=== PATIENT | female | born 1940 | race African-American/Black ===

== ENCOUNTER 2017-03-05 04:33 | Emergency (ER) | payer MEDICARE ==
[~2017-03-05] VITALS: Ht 149.9 cm; Wt 79.5 kg
[~2017-03-05 04:33] MED LIST: HTN MED PO; HYDR-3971 PO; SITA100 PO
[2017-03-05 04:47] LABS: GLUCOSE,POINT OF CARE 112 MG/DL (70-110)
[2017-03-05] MEDS ORDERED: KETOROLAC TROMETHAMINE 60 MG/2 ML VIAL IM ONE (06:30)
[2017-03-05 06:55] LABS: BASOPHILS # (AUTO) 0.04 K/uL (0.00-0.20); BASOPHILS % (AUTO) 0.4 % (0.0-2.0); EOSINOPHILS # (AUTO) 0.14 K/uL (0.00-0.70); EOSINOPHILS % (AUTO) 1.36 % (1.0-6.0); HEMATOCRIT 40.9 % (36-46); HEMOGLOBIN 13.2 g/dL (12.0-16.0); LYMPHOCYTES # (AUTO) 1.5 K/uL (1.0-4.8); LYMPHOCYTES % (AUTO) 15.1 % (22.0-44.0); MEAN CORPUSCULAR HGB CONC 32.2 G/dL (31.0-37.0); MEAN CORPUSCULAR VOLUME 93 fL (80-100); MONOCYTES # (AUTO) 0.5 K/uL (0.1-1.0); MONOCYTES % (AUTO) 4.7 % (2.0-9.0); NEUTROPHILS # (AUTO) 7.8 K/uL (1.8-7.7); NEUTROPHILS % (AUTO) 78.4 % (40.0-70.0); PLATELET COUNT (AUTO) 235 K/uL (150-450); RED BLOOD CELL COUNT(AUTO) 4.38 MIL/uL (4.00-5.20); RED CELL DISTRIBUTION WIDTH 13.6 % (11.5-14.5)
[2017-03-05 07:07] LABS: CALCIUM, TOTAL 9.4 mg/dL (8.8-10.5); CREATININE 1.21 mg/dL (0.60-1.30); POTASSIUM 4.5 mmol/L (3.5-5.1)
[2017-03-05 07:13] LABS: ALBUMIN 3.9 g/dL (3.4-5.0); BILIRUBIN,TOTAL 0.4 mg/dL (0.1-1.0); TOTAL PROTEIN, SERUM 8.2 g/dL (6.4-8.2)
[2017-03-05 08:00] VITALS: BP 144/72
== END 2017-03-05 08:11 | disposition home or self-care (01) ==
LOC: EMS 04:34
DX: S00.212A Abrasion of left eyelid and periocular area, initial encounter (principal); M50.30 Other cervical disc degeneration, unspecified cervical region; E11.9 Type 2 diabetes mellitus without complications; I10 Essential (primary) hypertension; Z88.2 Allergy status to sulfonamides; Z88.5 Allergy status to narcotic agent; W06.XXXA Fall from bed, initial encounter; Y93.89 Activity, other specified; Y92.89 Other specified places as the place of occurrence of the external cause; Y99.8 Other external cause status
CPT/HCPCS: 36415; 70450; 72125; 80053; 82962; 85025; 96372; 99285; J1885

== ENCOUNTER 2023-03-21 10:15 | Inpatient (IN) | payer MEDICARE, MEDICAID ==
[~2023-03-21] VITALS: Ht 152.4 cm; Wt 54.5 kg
[~2023-03-21 10:15] MED LIST changes: -HYDR-3971 PO; +HYDR-4072 PO
[2023-03-21 13:34] LABS: BASOPHILS % (AUTO) 0.3 % (0.0-2.0); EOSINOPHILS % (AUTO) 0.7 % (1.0-6.0); HEMATOCRIT 39.2 % (36-46); LYMPHOCYTES # (AUTO) 1.9 K/uL (1.0-4.8); LYMPHOCYTES % (AUTO) 12.4 % (22.0-44.0); MEAN CORPUSCULAR HEMOGLOBIN 30.4 pg (26.0-34.0); MEAN CORPUSCULAR HGB CONC 33.1 G/dL (31.0-37.0); MEAN CORPUSCULAR VOLUME 92 fL (80-100); MONOCYTES # (AUTO) 0.9 K/uL (0.1-1.0); MONOCYTES % (AUTO) 6.1 % (2.0-9.0); NEUTROPHILS # (AUTO) 12.5 K/uL (1.8-7.7); NEUTROPHILS % (AUTO) 80.5 % (40.0-70.0); PLATELET COUNT (AUTO) 107 K/uL (150-450); RED BLOOD CELL COUNT(AUTO) 4.28 MIL/uL (4.00-5.20); RED CELL DISTRIBUTION WIDTH 14.5 % (11.5-14.5); WHITE BLOOD COUNT (AUTO) 15.5 K/uL (4.5-11.0)
[2023-03-21 14:16] LABS: ANION GAP 12 mmol/L (8-16); CALCIUM, TOTAL 10.2 mg/dL (8.8-10.5); CARBON DIOXIDE 26 mmol/L (22-29); CHLORIDE 104 mmol/L (98-107); CREATININE 0.92 mg/dL (0.60-1.30); GLOMERULAR FILTR. RATE CALC > 60 mL/min (>60); GLUCOSE,RANDOM 163 mg/dL (70-110); POTASSIUM 3.8 mmol/L (3.5-5.1); SODIUM SERUM 142 mmol/L (136-145); UREA NITROGEN, BLOOD 14 mg/dL (7-18)
[2023-03-21 14:26] LABS: ALANINE AMINOTRANSFERASE 22 U/L (12-78); ALBUMIN 4.1 g/dL (3.4-5.0); ALKALINE PHOSPHATASE 72 U/L (46-116); ASPARTATE AMINOTRANSFERASE 31 U/L (15-37); TOTAL PROTEIN, SERUM 8.3 g/dL (6.4-8.2)
[2023-03-21] MEDS ORDERED: ONDANSETRON HCL 4 MG/2 ML VIAL IVP ONE (15:00)
[2023-03-21] MEDS ORDERED: MORPHINE SULFATE 4 MG/ML SYRINGE IVP ONE (15:00)
[2023-03-21 15:21] LABS: INR 1.2 (0.9-1.1)
[2023-03-21] MEDS ORDERED: FentaNYL CITRATE PF 100 MCG/2 ML VIAL IVP ONE (17:15)
[2023-03-21 17:23] LABS: APPEARANCE,URINE CLEAR (CLEAR); BILIRUBIN,URINE NEGATIVE (NEGATIVE); COLOR,URINE LIGHT YELLOW (YELLOW); GLUCOSE, URINE (UA) NEGATIVE (NEGATIVE); KETONES,URINE NEGATIVE (NEGATIVE); LEUKOCYTE ESTERASE ,URINE SMALL (NEGATIVE); NITRATE,URINE NEGATIVE (NEGATIVE); OCCULT BLOOD,URINE NEGATIVE (NEGATIVE); PH,URINE 6.5 (5.0-8.0); PROTEIN,URINE NEGATIVE (NEGATIVE); SPECIFIC GRAVITIY, URINE 1.012 (1.003-1.030); UROBILINOGEN,URINE <=1.0 mg/dL (<=1.0)
[2023-03-21 17:57] LABS: BACTERIA,URINE None Seen /HPF (None Seen); RBC,URINE None Seen /HPF (0-2)
[2023-03-21] MEDS ORDERED: ONDANSETRON HCL 4 MG/2 ML VIAL IVP PRN (18:30)
[2023-03-21] MEDS ORDERED: DEXTROSE 50%-WATER 25 GM/50 ML SYRINGE IVP PRN (18:45)
[2023-03-21] MEDS ORDERED: LORazepam 2 MG/ML VIAL IVP ONE (19:15)
[2023-03-21] MEDS: DOCUSATE SODIUM 100 MG CAPSULE PO SCH (21:00)
[2023-03-21] MEDS ORDERED: SODIUM CHLORIDE 0.9% 1,650 ML IV ONE (21:15)
[2023-03-21] MEDS: INSULIN GLARGINE,HUM.REC.ANLOG 100 UNITS/ML SQ SCH (21:42)
[2023-03-21] MEDS: CefTRIAXone 1 GM/DEXTROSE 50 ML IV SCH (22:05)
[2023-03-21 22:50] LABS: LACTIC ACID 0.8 mmol/L (0.4-2.0)
[2023-03-21 23:37] LABS: COVID AG,FIA SOURCE NASAL SWAB
[2023-03-21 23:53] VITALS: BP 125/73; PULSE 85; RESP 18; TEMP 99.7
[2023-03-21 23:58] LABS: SARS-COV2 (COVID) ANTIGEN,FIA Negative (Negative)
[2023-03-22] MEDS: SODIUM CHLORIDE 0.9% 1,000 ML IV SCH ×2 (00:49→16:46)
[2023-03-22] MEDS: ACETAMINOPHEN 325 MG TABLET PO PRN ×3 (00:50→21:52)
[2023-03-22 05:52] VITALS: BP 132/46; PULSE 69; RESP 18; TEMP 97.7
[2023-03-22 07:30] LABS: BASOPHILS % (AUTO) 0.4 % (0.0-2.0); HEMOGLOBIN 11.6 g/dL (12.0-16.0); LYMPHOCYTES # (AUTO) 1.6 K/uL (1.0-4.8); LYMPHOCYTES % (AUTO) 14.5 % (22.0-44.0); MEAN CORPUSCULAR HEMOGLOBIN 30.2 pg (26.0-34.0); MEAN CORPUSCULAR HGB CONC 33.3 G/dL (31.0-37.0); MEAN CORPUSCULAR VOLUME 91 fL (80-100); MONOCYTES % (AUTO) 9.1 % (2.0-9.0); NEUTROPHILS # (AUTO) 8.2 K/uL (1.8-7.7); PLATELET COUNT (AUTO) 245 K/uL (150-450); RED BLOOD CELL COUNT(AUTO) 3.86 MIL/uL (4.00-5.20); RED CELL DISTRIBUTION WIDTH 14.2 % (11.5-14.5); WHITE BLOOD COUNT (AUTO) 10.9 K/uL (4.5-11.0)
[2023-03-22 07:41] LABS: ANION GAP 9 mmol/L (8-16); CALCIUM, TOTAL 9.3 mg/dL (8.8-10.5); CARBON DIOXIDE 27 mmol/L (22-29); CHLORIDE 106 mmol/L (98-107); CREATININE 0.79 mg/dL (0.60-1.30); GLOMERULAR FILTR. RATE CALC > 60 mL/min (>60); GLUCOSE,RANDOM 128 mg/dL (70-110); POTASSIUM 4.2 mmol/L (3.5-5.1); SODIUM SERUM 142 mmol/L (136-145); UREA NITROGEN, BLOOD 8 mg/dL (7-18)
[2023-03-22 07:41] LABS: GLUCOMETER DEV NAME(LOC) 6S.2; GLUCOSE,POINT OF CARE 122 MG/DL (70-110)
[2023-03-22 08:17] VITALS: BP 143/65; PULSE 80; RESP 18; TEMP 97.6
[2023-03-22] MEDS: DOCUSATE SODIUM 100 MG CAPSULE PO SCH ×2 (09:00→21:18)
[2023-03-22] MEDS ORDERED: BUPIVACAINE LIPOSOME/PF 1.3%-13.3MG/ML SUSPENSION 20 ML VIAL INJ ONE (10:45)
[2023-03-22] MEDS ORDERED: CHLORHEXIDINE GLUCONATE 2% TOWELETTE [2'S/6'S] TP ONE (11:15)
[2023-03-22] MEDS ORDERED: ETHYL ALCOHOL 62% ANTISEPTIC NASAL SANITIZER 0.6 ML AMPUL NASAL ONE (11:15)
[2023-03-22 11:26] LABS: GLUCOMETER DEV NAME(LOC) 6S.2; GLUCOSE,POINT OF CARE 86 MG/DL (70-110)
[2023-03-22] MEDS ORDERED: VANCOMYCIN HCL 1 GM/VIAL ONE (11:54)
[2023-03-22] MEDS ORDERED: BUPIVACAINE HCL/PF 0.5% 30 ML VIAL ONE (11:54)
[2023-03-22] MEDS ORDERED: PROPOFOL 1% 20 ML VIAL IVP ONE (12:00)
[2023-03-22] MEDS ORDERED: ACETAMINOPHEN/ISO-OSM 1000 MG/100 ML BOTTLE IV ONE (12:00)
[2023-03-22] MEDS ORDERED: FentaNYL CITRATE PF 100 MCG/2 ML VIAL IVP ONE (12:00)
[2023-03-22] MEDS ORDERED: RINGERS SOLUTION,LACTATED 1,000 ML IV ONE (12:30)
[2023-03-22] MEDS ORDERED: HYDROmorphone HCL 2 MG/ML SYRINGE IVP PRN (16:00)
[2023-03-22] MEDS ORDERED: FentaNYL CITRATE PF 100 MCG/2 ML VIAL IVP PRN (16:00)
[2023-03-22] MEDS ORDERED: MEPERIDINE-PF 25 MG/ML VIAL IVP PRN (16:00)
[2023-03-22] MEDS: HEPARIN SODIUM,PORCINE 5,000 UNITS/ML VIAL SQ SCH ×2 (16:46→23:56)
[2023-03-22 17:42] LABS: GLUCOMETER DEV NAME(LOC) 6S.2; GLUCOSE,POINT OF CARE 114 MG/DL (70-110)
[2023-03-22 18:01] VITALS: BP 126/69; PULSE 103; RESP 17; TEMP 97.8
[2023-03-22] MEDS: OXYGEN THERAPY IH SCH (20:00)
[2023-03-22 20:36] VITALS: BP 147/77; PULSE 102; RESP 20; TEMP 98.2
[2023-03-22] MEDS: CefTRIAXone 1 GM/DEXTROSE 50 ML IV SCH (21:19)
[2023-03-22] MEDS: INSULIN GLARGINE,HUM.REC.ANLOG 100 UNITS/ML SQ SCH (21:27)
[2023-03-23 01:56] LABS: GLUCOMETER DEV NAME(LOC) 4E.2; GLUCOSE,POINT OF CARE 120 MG/DL (70-110)
[2023-03-23] MEDS: HYDROCODONE/ACETAMINOPHEN 5-325 MG TABLET PO PRN ×3 (02:51→20:21)
[2023-03-23 05:39] VITALS: BP 125/59; PULSE 92; RESP 20; TEMP 98.3
[2023-03-23] MEDS: OXYGEN THERAPY IH SCH ×2 (08:00→20:00)
[2023-03-23 08:20] VITALS: BP 142/66; PULSE 93; RESP 18; TEMP 98
[2023-03-23] MEDS: SODIUM CHLORIDE 0.9% 1,000 ML IV SCH (08:44)
[2023-03-23] MEDS: DOCUSATE SODIUM 100 MG CAPSULE PO SCH ×2 (08:46→20:21)
[2023-03-23] MEDS: HEPARIN SODIUM,PORCINE 5,000 UNITS/ML VIAL SQ SCH ×2 (08:46→16:00)
[2023-03-23 12:01] LABS: GLUCOMETER DEV NAME(LOC) 6S.2; GLUCOSE,POINT OF CARE 139 MG/DL (70-110)
[2023-03-23 16:35] VITALS: BP 129/55; PULSE 98; RESP 18; TEMP 97.4
[2023-03-23] MEDS: INSULIN LISPRO 100 UNITS/ML SQ PRN (17:45)
[2023-03-23 19:35] VITALS: BP 126/55; PULSE 114; RESP 20; TEMP 98.8
[2023-03-23] MEDS: INSULIN GLARGINE,HUM.REC.ANLOG 100 UNITS/ML SQ SCH (20:55)
[2023-03-23] MEDS: CefTRIAXone 1 GM/DEXTROSE 50 ML IV SCH (21:49)
[2023-03-24 00:41] LABS: GLUCOMETER DEV NAME(LOC) 6N.2B; GLUCOSE,POINT OF CARE 124 MG/DL (70-110)
[2023-03-24] MEDS: HEPARIN SODIUM,PORCINE 5,000 UNITS/ML VIAL SQ SCH ×4 (00:56→23:45)
[2023-03-24] MEDS: SODIUM CHLORIDE 0.9% 1,000 ML IV SCH ×2 (00:57→16:22)
[2023-03-24 03:45] VITALS: BP 125/54; PULSE 91; RESP 18; TEMP 99
[2023-03-24 07:51] LABS: GLUCOMETER DEV NAME(LOC) 4E.2; GLUCOSE,POINT OF CARE 111 MG/DL (70-110)
[2023-03-24 07:55] VITALS: BP 147/63; PULSE 86; RESP 18; TEMP 99
[2023-03-24] MEDS: OXYGEN THERAPY IH SCH ×2 (08:00→20:00)
[2023-03-24] MEDS: DOCUSATE SODIUM 100 MG CAPSULE PO SCH ×2 (11:03→20:01)
[2023-03-24 12:37] LABS: GLUCOMETER DEV NAME(LOC) 4E.2; GLUCOSE,POINT OF CARE 104 MG/DL (70-110)
[2023-03-24] MEDS: HYDROCODONE/ACETAMINOPHEN 5-325 MG TABLET PO PRN ×2 (13:55→20:01)
[2023-03-24] MEDS: INSULIN LISPRO 100 UNITS/ML SQ PRN (17:20)
[2023-03-24 17:25] VITALS: BP 142/67; PULSE 98; RESP 18; TEMP 98.6
[2023-03-24 17:57] LABS: GLUCOMETER DEV NAME(LOC) 4E.2; GLUCOSE,POINT OF CARE 156 MG/DL (70-110)
[2023-03-24 17:57] LABS: GLUCOMETER DEV NAME(LOC) 4E.2; GLUCOSE,POINT OF CARE 130 MG/DL (70-110)
[2023-03-24] MEDS ORDERED: HALOPERIDOL LACTATE 5 MG/ML VIAL IM ONE (19:00)
[2023-03-24 20:08] VITALS: BP 137/77; PULSE 103; RESP 18; TEMP 98.1
[2023-03-24] MEDS: INSULIN GLARGINE,HUM.REC.ANLOG 100 UNITS/ML SQ SCH (21:06)
[2023-03-24] MEDS: CefTRIAXone 1 GM/DEXTROSE 50 ML IV SCH (21:18)
[2023-03-24] MEDS: HYDROmorphone HCL 2 MG/ML SYRINGE IVP PRN (22:09)
[2023-03-25 02:36] LABS: GLUCOMETER DEV NAME(LOC) 6N.2B; GLUCOSE,POINT OF CARE 129 MG/DL (70-110)
[2023-03-25 04:16] VITALS: BP 141/64; PULSE 86; RESP 18; TEMP 98.6
[2023-03-25] MEDS: HYDROCODONE/ACETAMINOPHEN 5-325 MG TABLET PO PRN ×2 (04:25→09:04)
[2023-03-25 05:36] LABS: GLUCOMETER DEV NAME(LOC) 6N.2B; GLUCOSE,POINT OF CARE 162 MG/DL (70-110)
[2023-03-25] MEDS: INSULIN LISPRO 100 UNITS/ML SQ PRN ×4 (05:40→20:41)
[2023-03-25] MEDS: OXYGEN THERAPY IH SCH (08:00)
[2023-03-25 08:25] VITALS: BP 143/66; PULSE 84; RESP 18; TEMP 98.1
[2023-03-25] MEDS: DOCUSATE SODIUM 100 MG CAPSULE PO SCH ×2 (09:04→20:19)
[2023-03-25] MEDS: HEPARIN SODIUM,PORCINE 5,000 UNITS/ML VIAL SQ SCH ×3 (09:04→23:11)
[2023-03-25] MEDS: SODIUM CHLORIDE 0.9% 1,000 ML IV SCH (10:38)
[2023-03-25] MEDS: ACETAMINOPHEN 325 MG TABLET PO PRN (12:15)
[2023-03-25 12:41] LABS: GLUCOMETER DEV NAME(LOC) 6N.2B; GLUCOSE,POINT OF CARE 146 MG/DL (70-110)
[2023-03-25 15:28] VITALS: BP 140/82; PULSE 103; RESP 20; TEMP 97.8
[2023-03-25 18:01] LABS: GLUCOMETER DEV NAME(LOC) 6S.2; GLUCOSE,POINT OF CARE 151 MG/DL (70-110)
[2023-03-25 19:29] VITALS: BP 150/53; PULSE 117; RESP 18; TEMP 98.4
[2023-03-25] MEDS: MELATONIN 3 MG TABLET PO PRN (20:20)
[2023-03-25] MEDS: INSULIN GLARGINE,HUM.REC.ANLOG 100 UNITS/ML SQ SCH (20:40)
[2023-03-25] MEDS: CefTRIAXone 1 GM/DEXTROSE 50 ML IV SCH (21:28)
[2023-03-25 23:26] LABS: GLUCOMETER DEV NAME(LOC) 6S.2; GLUCOSE,POINT OF CARE 168 MG/DL (70-110)
[2023-03-26] MEDS: SODIUM CHLORIDE 0.9% 1,000 ML IV SCH ×2 (03:30→19:42)
[2023-03-26 05:06] VITALS: BP 155/75; PULSE 95; RESP 18; TEMP 98.3
[2023-03-26] MEDS: INSULIN LISPRO 100 UNITS/ML SQ PRN (05:43)
[2023-03-26 07:12] LABS: GLUCOMETER DEV NAME(LOC) 6S.2; GLUCOSE,POINT OF CARE 145 MG/DL (70-110)
[2023-03-26] MEDS: OXYGEN THERAPY IH SCH (08:00)
[2023-03-26] MEDS: DOCUSATE SODIUM 100 MG CAPSULE PO SCH ×2 (09:17→21:23)
[2023-03-26] MEDS: HEPARIN SODIUM,PORCINE 5,000 UNITS/ML VIAL SQ SCH ×2 (09:17→16:36)
[2023-03-26] MEDS: HYDROCODONE/ACETAMINOPHEN 5-325 MG TABLET PO PRN (10:35)
[2023-03-26 11:42] VITALS: BP 102/55; PULSE 134; RESP 18; TEMP 97.5
[2023-03-26] MEDS: LORazepam 2 MG/ML VIAL IVP PRN ×4 (15:55→22:42)
[2023-03-26 17:10] VITALS: BP 126/61; PULSE 102; RESP 19; TEMP 98.8
[2023-03-26 18:56] LABS: GLUCOMETER DEV NAME(LOC) 4E.2; GLUCOSE,POINT OF CARE 107 MG/DL (70-110)
[2023-03-26 20:33] VITALS: BP 149/68; PULSE 103; RESP 18; TEMP 97.9
[2023-03-26] MEDS: CefTRIAXone 1 GM/DEXTROSE 50 ML IV SCH (21:23)
[2023-03-26] MEDS: INSULIN GLARGINE,HUM.REC.ANLOG 100 UNITS/ML SQ SCH (21:30)
[2023-03-26] MEDS: MELATONIN 3 MG TABLET PO PRN (21:30)
[2023-03-27] MEDS: HEPARIN SODIUM,PORCINE 5,000 UNITS/ML VIAL SQ SCH ×4 (00:03→17:01)
[2023-03-27 03:18] VITALS: BP 147/60; PULSE 93; RESP 20; TEMP 97.7
[2023-03-27 06:11] LABS: GLUCOMETER DEV NAME(LOC) 4E.2; GLUCOSE,POINT OF CARE 120 MG/DL (70-110)
[2023-03-27] MEDS: OXYGEN THERAPY IH SCH (07:37)
[2023-03-27] MEDS: HYDROmorphone HCL 2 MG/ML SYRINGE IVP PRN (07:40)
[2023-03-27] MEDS: DOCUSATE SODIUM 100 MG CAPSULE PO SCH (08:50)
[2023-03-27 09:10] VITALS: BP 147/67; PULSE 92; RESP 18; TEMP 97.7
[2023-03-27 12:06] LABS: GLUCOMETER DEV NAME(LOC) 6N.2B; GLUCOSE,POINT OF CARE 125 MG/DL (70-110)
[2023-03-27] MEDS: SODIUM CHLORIDE 0.9% 1,000 ML IV SCH (13:33)
[2023-03-27] MEDS ORDERED: DOCU-119 PO (14:15)
[2023-03-27] MEDS ORDERED: HEPA500018 SQ (14:15)
[2023-03-27] MEDS ORDERED: INSLAN SQ (14:22)
[2023-03-27] MEDS ORDERED: HYDR-4723 PO (14:27)
[2023-03-27] MEDS ORDERED: INSU100V SQ (14:28)
[2023-03-27] MEDS ORDERED: MELA3TAB89 PO (14:37)
[2023-03-27] MEDS ORDERED: METO25 PO (14:37)
[2023-03-27] MEDS ORDERED: ESCI-8 PO (14:38)
[2023-03-27] MEDS ORDERED: LOSA-382 PO (14:39)
[2023-03-27] MEDS ORDERED: ATOR40TA28 PO (14:39)
[2023-03-27] MEDS ORDERED: PANT-31 PO (14:41)
[2023-03-27 15:52] VITALS: BP 146/63; PULSE 93; RESP 19; TEMP 97.9
[2023-03-27 17:26] LABS: GLUCOMETER DEV NAME(LOC) 4E.2; GLUCOSE,POINT OF CARE 119 MG/DL (70-110)
[2023-03-28] MEDS ORDERED: ASPIRIN 81 MG CHEWABLE TABLET PO SCH (08:00)
== END 2023-03-27 18:05 | DRG 480 ==
LOC: EMS 10:15 → AHU 19:05 → 6S 20:12
PROVIDERS: ADMIT Internal Medicine; ATTEND Internal Medicine
PROC: 0QS604Z Reposition Right Upper Femur with Internal Fixation Device, Open Approach (ICD-10-PCS; principal; 2023-03-22 15:20)
DX: M80.051A Age-related osteoporosis with current pathological fracture, right femur, initial encounter for fracture (principal); G92.9 Unspecified toxic encephalopathy; R65.10 Systemic inflammatory response syndrome (SIRS) of non-infectious origin without acute organ dysfunction; N39.0 Urinary tract infection, site not specified; R26.9 Unspecified abnormalities of gait and mobility; Z96.651 Presence of right artificial knee joint; I10 Essential (primary) hypertension; F03.90 Unspecified dementia, unspecified severity, without behavioral disturbance, psychotic disturbance, mood disturbance, and anxiety; Z20.822 Contact with and (suspected) exposure to COVID-19; E11.9 Type 2 diabetes mellitus without complications; S00.83XA Contusion of other part of head, initial encounter; W01.0XXA Fall on same level from slipping, tripping and stumbling without subsequent striking against object, initial encounter; Y93.01 Activity, walking, marching and hiking; Y92.098 Other place in other non-institutional residence as the place of occurrence of the external cause; Z88.2 Allergy status to sulfonamides; Z88.5 Allergy status to narcotic agent; Z98.1 Arthrodesis status; Y99.8 Other external cause status
CPT/HCPCS: 70450; 71045; 72125; 73502; 73700; 80048; 80053; 81001; 82962; 83605; 83735; 85025; 85610; 85730; 87040; 93005; 97116; 97162; 97530; 99285; C9290; G0238; J0131; J0696; J1170; J1630; J1644; J1815; J2060; J2270; J2405; J2704; J3010; J3370; J3490; J7030; J7120; 36415-L1; 36415-TC